=== PATIENT | female | born 1985 | race Two or more races ===

== ENCOUNTER 2020-05-15 00:23 | Emergency (ER) | payer SELFPAY ==
[~2020-05-15] VITALS: Ht 154.9 cm; Wt 81.8 kg
--- NOTE | 2020-05-15 01:26 | NUR ---
THIS TECH DID EKG
[2020-05-15 02:57] VITALS: BP 94/54
--- NOTE | 2020-05-15 03:13 | NUR ---
Pt was asking about cough and not being able to sleep. Pt was advised if she got her cough medicine prescription filled tonight, at the [facility] [facility] and took a dose, it would help with her cough.
== END 2020-05-15 03:15 | disposition home or self-care (01) ==
LOC: ED 00:45
DX: J20.9 Acute bronchitis, unspecified (principal); R05 Cough; R07.89 Other chest pain; R09.81 Nasal congestion; R94.31 Abnormal electrocardiogram [ECG] [EKG]
CPT/HCPCS: 71045; 93005; 99283